=== PATIENT | female | born 1970 | race Caucasian/White ===

== ENCOUNTER → 2017-10-09 | Outpatient (CLI) | payer BC ==
[2017-10-09 20:32] LABS: Basophils # (A) 0.1 k/uL (0-0.2); Basophils % (A) 1 %; Eosinophils # (A) 0.4 k/uL (0-0.7); Eosinophils % (A) 5 %; HCT 46.3 % (34.0-46.0); HGB 14.7 gm/dL (11.4-16.0); Lymphocytes # (A) 1.9 k/uL (1.0-4.8); Lymphocytes % (A) 25 %; MCH 28.1 pg (25.0-35.0); MCHC 31.8 g/dL (31.0-37.0); MCV 88.6 fL (80.0-100.0); Mean Platelet Volume 7.9; Monocytes # (A) 0.4 k/uL (0-1.0); Monocytes % (A) 5 %; Neutrophils # (A) 4.9 k/uL (1.3-7.7); Neutrophils % (A) 64 %; Platelet Count 257 k/uL (150-450); RBC 5.23 m/uL (3.80-5.40); RDW 12.4 % (11.5-15.5); WBC 7.7 k/uL (3.8-10.6)
[2017-10-09 20:45] LABS: ALT 28 U/L (9-52); AST 28 U/L (14-36); Albumin 4.5 g/dL (3.5-5.0); Alkaline Phosphatase 57 U/L (38-126); Anion Gap 15 mmol/L; Blood Urea Nitrogen 11 mg/dL (7-17); Calcium 10.3 mg/dL (8.4-10.2); Carbon Dioxide 29 mmol/L (22-30); Chloride 102 mmol/L (98-107); Cholesterol 224 mg/dL (<200); Glucose 80 mg/dL (74-99); HDL Cholesterol 70 mg/dL (40-60); LDL Cholesterol,Calculated 129 mg/dL (0-99); Sodium 146 mmol/L (137-145); Total Bilirubin 1.3 mg/dL (0.2-1.3); Total Protein 7.7 g/dL (6.3-8.2); Triglycerides 124 mg/dL (<150)
== END | disposition home or self-care (01) ==
LOC: MMGSC 16:16
PROVIDERS: ATTEND Family Medicine
DX: Z00.00 Encounter for general adult medical examination without abnormal findings (principal); E05.00 Thyrotoxicosis with diffuse goiter without thyrotoxic crisis or storm
CPT/HCPCS: 36415; 80053; 80061; 84439; 84443; 85025

== ENCOUNTER → 2019-05-07 | Outpatient (CLI) | payer OTHER ==
--- NOTE | 2019-05-08 09:04 | USB ---
Reason for exam: additional evaluation requested from abnormal screening. History: Patient is postmenopausal. MG discontinued needle loc LT of the left breast, December 16, 2013. MG discontinued stereo core LT of the left breast, December 09, 2013. Taking estrogen for 10 years 6 months beginning at age 35. Physical Findings: Nurse did not find any significant physical abnormalities on exam. US Breast Workup Limited LT Left limited breast ultrasound including focal area of concern, retroareolar and axilla demonstrates a 0.9 x 1.1 x 0.4cm oval, complex, cystic cluster at 12 o'clock, a 0.7 x 0.5 x 0.2cm oval, irregular, complex, cystic lesion at 1 o'clock, a 0.8 x 0.7 x 0.5cm oval, cystic cluster at 2 o'clock, duct ectasia at the posterior nipple and a 1.7 x 1.6 x 0.9cm oval axilla node. These results were verbally communicated with the patient and result sheet given to the patient on 05/07/19. ASSESSMENT: Probably benign, BI-RAD 3 RECOMMENDATION: Follow-up diagnostic mammogram and ultrasound of the left breast in 6 months. (upper outer quadrant)
== END | disposition home or self-care (01) ==
LOC: RADUSWWP 14:51
PROVIDERS: ATTEND Family Medicine
DX: R92.8 Other abnormal and inconclusive findings on diagnostic imaging of breast (principal)

== ENCOUNTER → 2020-03-09 | Outpatient (CLI) | payer BC ==
--- NOTE | 2020-03-09 10:26 | MM ---
Reason for exam: follow-up at short interval from prior study. Last mammogram was performed 10 months ago. History: Patient is postmenopausal. MG discontinued needle loc LT of the left breast, December 16, 2013. MG discontinued stereo core LT of the left breast, December 09, 2013. Taking estrogen for 14 years beginning at age 35. Physical Findings: Nurse did not find any significant physical abnormalities on exam. MG Diagnostic Mammo w CAD RAMON Bilateral CC and MLO view(s) were taken. Prior study comparison: April 25, 2019, bilateral [facility] screening mammo. May 14, 2018, bilateral [facility] screening mammo. The breast tissue is heterogeneously dense. This may lower the sensitivity of mammography. Stable nodular density upper outer left breast since 2017. These results were verbally communicated with the patient and result sheet given to the patient on 03/09/20. ASSESSMENT: Incomplete: need additional imaging evaluation, BI-RAD 0 RECOMMENDATION: Ultrasound of the left breast.
--- NOTE | 2020-03-09 10:28 | USB ---
Reason for exam: additional evaluation requested from abnormal screening. History: Patient is postmenopausal. MG discontinued needle loc LT of the left breast, December 16, 2013. MG discontinued stereo core LT of the left breast, December 09, 2013. Taking estrogen for 14 years beginning at age 35. US Breast Limited LT Left limited breast ultrasound including focal area of concern, retroareolar and axilla demonstrates a 6 x 3 x 9mm mixed lesion at 12 o'clock, a 4 x 2 x 5mm cystic lesion at 12 o'clock, a 5 x 2 x 5mm cystic lesion at 1 o'clock and a 5 x 4 x 5mm cystic lesion at 2 o'clock. These results were verbally communicated with the patient and result sheet given to the patient on 03/09/20. ASSESSMENT: Probably benign, BI-RAD 3 RECOMMENDATION: Ultrasound of the left breast in 6 months.
== END | disposition home or self-care (01) ==
LOC: RADMAMWWP 08:56
PROVIDERS: ATTEND Family Medicine
DX: R92.8 Other abnormal and inconclusive findings on diagnostic imaging of breast (principal)
CPT/HCPCS: 77066

== ENCOUNTER → 2021-03-01 | Outpatient (CLI) | payer MEDICAID ==
--- NOTE | 2021-03-02 08:19 | XR ---
EXAMINATION TYPE: XR cervical spine comp DATE OF EXAM: 03/01/2021 COMPARISON: NONE HISTORY: Pain TECHNIQUE: Four views are submitted. FINDINGS: The odontoid is intact. There are no compression deformities. The prevertebral soft tissue structur es are within normal limits. Mild degenerative changes C5-C6. IMPRESSION: 1. Mild degenerative disc disease C5-C6. If symptoms persist consider MRI.
== END | disposition home or self-care (01) ==
LOC: RADXRMAIN 16:17
PROVIDERS: ATTEND Family Medicine
DX: M50.322 Other cervical disc degeneration at C5-C6 level (principal)
CPT/HCPCS: 72050

== ENCOUNTER → 2021-04-11 | Outpatient (CLI) | payer MEDICAID ==
--- NOTE | 2021-04-11 14:49 | MM ---
Reason for exam: follow-up at short interval from prior study. Last mammogram was performed 1 year and 1 month ago. History: Patient is postmenopausal. MG discontinued needle loc LT of the left breast, December 16, 2013. MG discontinued stereo core LT of the left breast, December 09, 2013. Taking estrogen for 14 years beginning at age 35. Physical Findings: Nurse did not find any significant physical abnormalities on exam. MG 3D Diag Mammo W/Cad RAMON Bilateral CC and MLO view(s) were taken. Prior study comparison: March 09, 2020, bilateral MG diagnostic mammo w CAD RAMON. May 07, 2019, left breast US breast workup limited LT. May 14, 2018, bilateral [facility]. The breast tissue is heterogeneously dense. This may lower the sensitivity of mammography. No significant new findings when compared with previous films. These results were verbally communicated with the patient and result sheet given to the patient on 04/11/21. ASSESSMENT: Benign, BI-RAD 2 RECOMMENDATION: Routine screening mammogram of both breasts in 1 year.
--- NOTE | 2021-04-11 14:51 | USB ---
Reason for exam: follow-up at short interval from prior study. History: Patient is postmenopausal. MG discontinued needle loc LT of the left breast, December 16, 2013. MG discontinued stereo core LT of the left breast, December 09, 2013. Taking estrogen for 14 years beginning at age 35. US Breast Limited LT Left limited breast ultrasound including focal area of concern, retroareolar and axilla demonstrates a 0.4 x 0.5 x 0.2cm cystic lesion with septation at 12 o'clock, stable from 03/09/20 and a 0.5 x 0.5 x 0.4cm cystic lesion at 2 o'clock. These results were verbally communicated with the patient and result sheet given to the patient on 04/11/21. ASSESSMENT: Benign, BI-RAD 2 RECOMMENDATION: Routine screening mammogram of both breasts in 1 year.
== END | disposition home or self-care (01) ==
LOC: RADMAMWWP 13:10
PROVIDERS: ATTEND Family Medicine
DX: R92.2 Inconclusive mammogram (principal); N60.02 Solitary cyst of left breast; Z78.0 Asymptomatic menopausal state; Z79.818 Long term (current) use of other agents affecting estrogen receptors and estrogen levels
CPT/HCPCS: 77062; 77066

== ENCOUNTER → 2021-04-12 | Outpatient (CLI) | payer MEDICAID ==
--- NOTE | 2021-04-13 09:00 | MR ---
MRI CERVICAL SPINE: CLINICAL HISTORY: Left-sided neck pain and stiffness. TECHNIQUE: Multiplanar, multisequence imaging of the cervical spine is performed without IV contrast. COMPARISON: Cervical spine x-ray March 01, 2021. FINDINGS: Sagittal images of the cervical spine show the craniocervical junction to appear within nor mal limits. The cervical and upper thoracic spinal cord is normal in course, caliber, and signal. V ertebral alignment is stable and satisfactory. The vertebral body and intravertebral disk heights ar e normal. The bone marrow signal intensity is within normal limits. Axial images show the C2-C3 and C3-C4 levels to appear within normal limits. Axial images at the C4-C5 levels show focal right paracentral disc protrusion mildly facing anterior thecal sac with some mild uncovertebral facet degenerative changes, patent bilateral neural foramina. Axial images at C5-C6 level shows broad-based posterior disc protrusion and mild uncovertebral facet degenerative changes, mild effacement of anterior thecal sac and mild bilateral neural foraminal narr owing. Axial images at C6-C7 level show left paracentral disc protrusion effacing the anterior thecal sac wi th asymmetric mild left-sided neural foraminal narrowing. Axial images at C7-T1 level are within normal limits. IMPRESSION: Mild multilevel degenerative changes mid to lower cervical spine as detailed above.
== END | disposition home or self-care (01) ==
LOC: RADMRIMAIN 15:54
PROVIDERS: ATTEND Family Medicine
DX: M50.223 Other cervical disc displacement at C6-C7 level (principal); M99.71 Connective tissue and disc stenosis of intervertebral foramina of cervical region
CPT/HCPCS: 72141

== ENCOUNTER → 2022-04-28 | Outpatient (CLI) | payer OTHER ==
--- NOTE | 2022-05-01 10:01 | MM ---
Reason for Exam: Screening (asymptomatic). Last mammogram was performed 1 year(s) and 1 month(s) ago. Patient History: Menarche at age 14. First Full-Term at age 19. Left ovary removed at age 35. Right ovary removed at age 35. Hysterectomy at age 35. Postmenopausal. Currently using Estrogen, starting at age 35. 12/16/2013, MG discontinued needle loc LT on the left side. 12/09/2013, MG discontinued stereo core LT on the left side. Risk Values: Deysi 5 year model risk: 0.7%. NCI Lifetime model risk: 5.9%. Prior Study Comparison: 04/25/2019 Bilateral Screening Mammogram, [facility]. 03/09/2020 Bilateral Diagnostic Mammogram, [facility]. 04/11/2021 Bilateral Diagnostic Mammogram, [facility]. Tissue Density: The breast tissue is heterogeneously dense. This may lower the sensitivity of mammography. Findings: Analyzed By CAD. There is no suspicious group of microcalcifications in either breast. There is a 5 mm oval equal density partially obscured mass within the lower inner right breast. Overall Assessment: Incomplete: need additional imaging evaluation, BI-RAD 0 Management: Diagnostic Breast Ultrasound of the right breast. A clinical breast exam by your physician is recommended on an annual basis and results should be correlated with mammographic findings. [facility] will attempt to contact patient to return for supplemental views and ultrasound if indicated. Electronically signed and approved by: Italo Jean Baptiste D.O.
== END | disposition home or self-care (01) ==
LOC: RADMAMWWP 11:00
PROVIDERS: ATTEND Family Medicine
DX: Z12.31 Encounter for screening mammogram for malignant neoplasm of breast (principal); Z78.0 Asymptomatic menopausal state
CPT/HCPCS: 77067

== ENCOUNTER → 2022-05-05 | Outpatient (CLI) | payer OTHER ==
--- NOTE | 2022-05-05 13:25 | USB ---
Reason for Exam: Additional evaluation requested from abnormal screening. Patient History: Menarche at age 14. First Full-Term at age 19. Left ovary removed at age 35. Right ovary removed at age 35. Hysterectomy at age 35. Postmenopausal. Currently using Estrogen, starting at age 35. 12/16/2013, MG discontinued needle loc LT on the left side. 12/09/2013, MG discontinued stereo core LT on the left side. Risk Values: Deysi 5 year model risk: 0.7%. NCI Lifetime model risk: 5.9%. Technique: Method: Targeted. Prior Study Comparison: 03/09/2020 Bilateral Diagnostic Mammogram, [facility]. 04/11/2021 Bilateral Diagnostic Mammogram, [facility]. 04/28/2022 Bilateral MG screening mammo w CAD, [facility]. Findings: The lower inner quadrant of the right breast was scanned. The right lower inner breast was scanned. There are scattered cysts including a anechoic 2 mm cyst at 4:00 at 2 cm from the nipple as well as additional cystic lesions at 3:00 3 cm from the nipple. No suspicious masses. Overall Assessment: Benign, BI-RAD 2 Management: Screening Mammogram of both breasts in 1 year. A clinical breast exam by your physician is recommended on an annual basis and results should be correlated with mammographic findings. This exam should not preclude additional follow-up of suspicious palpable abnormalities. ??Results were given to the patient verbally at the time of exam. Electronically signed and approved by: Mahesh Orlando DO
== END | disposition home or self-care (01) ==
LOC: RADUSWWP 12:54
PROVIDERS: ATTEND Family Medicine
DX: R92.8 Other abnormal and inconclusive findings on diagnostic imaging of breast (principal); Z78.0 Asymptomatic menopausal state

== ENCOUNTER → 2023-05-25 | Outpatient (CLI) | payer BC ==
--- NOTE | 2023-05-28 14:43 | MM ---
Reason for Exam: Screening (asymptomatic). Last mammogram was performed 1 year(s) and 1 month(s) ago. Patient History: Menarche at age 14. First Full-Term at age 19. Left ovary removed at age 35. Right ovary removed at age 35. Hysterectomy at age 35. Postmenopausal. Currently using Estrogen, starting at age 35. 12/16/2013, MG discontinued needle loc LT on the left side. 12/09/2013, MG discontinued stereo core LT on the left side. Risk Values: Deysi 5 year model risk: 0.7%. NCI Lifetime model risk: 5.8%. Prior Study Comparison: 03/09/2020 Bilateral Diagnostic Mammogram, [facility]. 04/11/2021 Bilateral Diagnostic Mammogram, [facility]. 04/28/2022 Bilateral MG screening mammo w CAD, [facility]. Tissue Density: The breast tissue is heterogeneously dense. This may lower the sensitivity of mammography. Findings: Analyzed By CAD. There is no suspicious group of microcalcifications or new suspicious mass in either breast. Overall Assessment: Benign, BI-RAD 2 Management: Screening Mammogram of both breasts in 1 year. . Patient should continue monthly self-breast exams. A clinical breast exam by your physician is recommended on an annual basis. This exam should not preclude additional follow-up of suspicious palpable abnormalities. Note on Deysi scores and lifetime risk: 1. A Deysi score greater than 3% is considered moderate risk. If this is the case, consider specialist referral to assess eligibility for a risk reducing agent. 2. If overall lifetime risk for the development of breast cancer is 20% or higher, the patient may qualify for future screening with alternating mammogram and breast MRI. Electronically signed and approved by: Jorge Encinas M.D. Radiologis
== END | disposition home or self-care (01) ==
LOC: RADMAMWWP 16:25
PROVIDERS: ATTEND Family Medicine
DX: Z12.31 Encounter for screening mammogram for malignant neoplasm of breast (principal); Z78.0 Asymptomatic menopausal state
CPT/HCPCS: 77067

== ENCOUNTER → 2024-06-27 | Outpatient (CLI) | payer BC ==
[2024-06-27 15:21] LABS: ALT 21 U/L (8-44); AST 21 U/L (13-35); Albumin 4.5 g/dL (3.8-4.9); Alkaline Phosphatase 64 U/L (41-126); Calcium 9.8 mg/dL (8.7-10.3); Carbon Dioxide 26.7 mmol/L (21.6-31.8); Chloride 105 mmol/L (96-109); Chol/HDL Ratio 3.41 Ratio; Globulin 2.5 g/dL (1.6-3.3); Glucose 104 mg/dL (70-110); LDL Cholesterol,Calculated 151.7 mg/dL (0.0-131.0); Potassium 4.2 mmol/L (3.5-5.5); Sodium 142 mmol/L (135-145); Total Bilirubin 1.3 mg/dL (0.3-1.2)
[2024-06-27 17:13] LABS: Basophils # (A) 0.06 X 10*3/uL (0.00-0.10); Basophils % (A) 0.9 %; Eosinophils # (A) 0.33 X 10*3/uL (0.04-0.35); Eosinophils % (A) 5.1 %; HCT 45.3 % (37.2-46.3); HGB 14.8 g/dL (12.0-15.0); Lymphocytes # (A) 2.31 X 10*3/uL (0.90-5.00); Lymphocytes % (A) 35.5 %; MCH 29.2 pg (27.0-32.0); MCHC 32.7 g/dL (32.0-37.0); MCV 89.3 FL (80.0-97.0); Mean Platelet Volume 9.8 FL (9.5-12.2); Monocytes # (A) 0.48 X 10*3/uL (0.20-1.00); Monocytes % (A) 7.4 %; NRBC Per 100 WBC 0 X 10*3/uL (0.00-0.01); Neutrophils % (A) 50.8 %; Platelet Count 230 X 10*3/uL (140-440); RBC 5.07 X 10*6/uL (4.10-5.20); RDW 12.9 % (11.5-14.5)
--- NOTE | 2024-06-29 03:00 | MM ---
Reason for Exam: Screening (asymptomatic). Last mammogram was performed 1 year(s) and 1 month(s) ago. Patient History: Menarche at age 14. First Full-Term at age 19. Left ovary removed at age 35. Right ovary removed at age 35. Hysterectomy at age 35. Postmenopausal. Currently using Estrogen, starting at age 35. 12/16/2013, MG discontinued needle loc LT on the left side. 12/09/2013, MG discontinued stereo core LT on the left side. Risk Values: Deysi 5 year model risk: 0.7%. NCI Lifetime model risk: 5.7%. Prior Study Comparison: 04/11/2021 Bilateral Diagnostic Mammogram, [facility]. 04/28/2022 Bilateral MG screening mammo w CAD, [facility]. 05/25/2023 Bilateral MG screening mammo w CAD, [facility]. Tissue Density: The breasts are heterogeneously dense, which may obscure small masses. Findings: Analyzed By CAD. The pattern is symmetrical. Appears stable. Nodularity is evident. No suspicious groups of microcalcifications, spiculated or lobular masses, architectural distortion or other secondary signs of malignancy are mammographically apparent. Overall Assessment: Benign, BI-RAD 2 Management: Screening Mammogram of both breasts in 1 year. A negative mammogram report should not preclude additional follow up of suspicious palpable abnormalities. Patient should continue monthly self breast exam. A clinical breast exam by your physician is recommended on an annual basis and results should be correlated with mammographic findings. Note on Deysi scores and lifetime risk: 1. A Deysi score greater than 3% is considered moderate risk. If this is the case, consider specialist referral to assess eligibility for a risk reducing agent. 2. If overall lifetime risk for the development of breast cancer is 20% or higher, the patient may qualify for future screening with alternating mammogram and breast MRI. [facility], , 06/29/2024 2:57 AM. Electronically signed and approved by: Alejo Montemayor D.O. Radiologis
== END | disposition home or self-care (01) ==
LOC: RADMAMWWP 10:27
PROVIDERS: ATTEND Family Medicine
DX: Z12.31 Encounter for screening mammogram for malignant neoplasm of breast (principal); R92.333 Mammographic heterogeneous density, bilateral breasts; Z78.0 Asymptomatic menopausal state
CPT/HCPCS: 77067; 80053; 80061; 84443; 85025